=== PATIENT | female | born 1990 | race Caucasian/White ===

== ENCOUNTER 2024-02-11 13:00 | Emergency (ER) | payer OTHER, SELFPAY ==
[2024-02-11 13:19] VITALS: BP 133/90; PULSE 88; RESP 16; TEMP 36.5; O2SAT 99
--- NOTE | 2024-02-11 13:43 | ED.SKABFB ---
HPI - Skin/Abscess/Foreign Bdy General Chief complaint: Skin/Abscess/Foreign Body Stated complaint: left breast lump/pain Time Seen by Provider: 02/11/24 13:24 Source: patient and RN notes reviewed Mode of arrival: ambulatory Limitations: no limitations History of Present Illness HPI narrative: Patient presents today with a 2 to three-week history painful lump to the left breast. She does not currently have a PCP or OBGYN. Denies redness or swelling, drainage from the nipple. No [id number] treatment prior to arrival. Related Data Allergies Allergy/AdvReac Type Severity Reaction Status Date / Time carbamazepine Allergy Intermediate Hives Verified 02/11/24 13:34 Review of Systems Review of Systems: CONSTITUTIONAL: Denies body aches, fever, chills, or sweats. EYES: Denies visual changes, redness, or discharge. ENT: Denies rhinorrhea, congestion, sore throat, or otalgia. CARDIOVASCULAR: Denies chest pain, palpitations, or edema. RESPIRATORY: Denies cough or dyspnea. GASTROINTESTINAL: Denies abdominal pain, nausea, vomiting, or diarrhea. GENITOURINARY: Denies dysuria or hematuria. SKIN: Denies rash, itching, or wounds. + left breast lump and pain MUSCULOSKELETAL: Denies back pain, joint pain, or myalgia. NEUROLOGIC: Denies headache, numbness, tingling, or weakness. PSYCH: Denies depression or anxiety. [facility] Past Medical History Medical History (Updated 02/11/24 @ 13:49 by Felicia Palacios, [facility], ) Anxiety Comments At time of signature, I have reviewed and agree with nursing past medical, surgical, social and family history unless otherwise noted. Please see nursing chart for further information. There is no relevant family history pertinent to the presenting complaint Exam Narrative: GENERAL: Well-appearing, well-nourished, and in no acute distress. HEAD: Normocephalic, atraumatic. EYES: EOMI. No redness or drainage. Conjunctivae normal. ENT: Mucous membranes pink and moist. NECK: Normal AROM. CHEST: No respiratory distress. Left breast: tenderness to the inferior portion of the breast. No erythema, edema, nipple discharge, pronounced lump noted to the breast. No orange peel skin. EXTREMITIES: Normal range of motion. No edema. SKIN: Warm, dry, no rash. Capillary refill normal. Normal skin turgor. NEURO: No focal deficits. Alert and oriented x3. Gait steady. PSYCH: Normal affect. No signs of depression or anxiety. Exam chaperoned by Yelena Padron Course Course Level of Care: Express Care Visit Vital Signs Vital signs: Vital Signs Temperature 97.7 F 02/11/24 13:19 Pulse Rate 88 02/11/24 13:19 Respiratory Rate 16 02/11/24 13:19 Blood Pressure 133/90 02/11/24 13:19 Pulse Oximetry 16 L 02/11/24 13:19 Oxygen Delivery Room Air 02/11/24 13:19 Temperature 97.7 F 02/11/24 13:19 Pulse Rate 88 02/11/24 13:19 Respiratory Rate 16 02/11/24 13:19 Blood Pressure 133/90 02/11/24 13:19 Pulse Oximetry 16 L 02/11/24 13:19 Oxygen Delivery Room Air 02/11/24 13:19 Reviewed MDM - Skin/Abscess/Foreign Bdy MDM Narrative Medical decision making narrative: At this time, obvious lump or mass is not palpated. Recommend patient follow-up with an OBGYN for further evaluation and treatment. ED precautions given Differential Diagnosis Differential diagnosis: Likely abscess of skin or subcutaneous tissue, cellulitis and other (mastitis, mass) Critical Care Time Critical Care Time Critical Care Time: No Discharge Plan Discharge Clinical Impression: Breast tenderness Patient Disposition: Home, Self-Care Condition: Stable Additional Instructions: Please follow-up with an OBGYN for further evaluation of your breast tenderness. Taking anti-inflammatories such as Aleve or ibuprofen for pain. Your blood pressure was elevated above 120/80 today at Urgent Care. This puts you above the threshold for follow up. Please schedule a followup visit with your personal p
== END 2024-02-11 13:56 | disposition home or self-care (01) ==
PROVIDERS: Emergency Provider Nurse Practitioner
DX: N64.4 Mastodynia (principal)
CPT/HCPCS: 99202; G0463

== ENCOUNTER 2024-03-02 04:41 | Emergency (ER) | payer OTHER, SELFPAY ==
--- NOTE | ~2024-03-02 | CT_ITS ---
EXAMINATION: CT abdomen pelvis wo con DATE: 03/02/2024 06:11 INDICATION: Abdominal pain. TECHNIQUE: Computed tomography (CT) of the abdomen and pelvis was performed without intravenous contr ast. Automated exposure control and iterative reconstruction technique were employed. The dose-length product was 271.57 mGy-cm. COMPARISON: None. FINDINGS: The visualized portions of the lung bases are clear without pneumonia or pleural effusion. The heart size is normal. No pericardial effusion. The liver, gallbladder, spleen, pancreas, adrenal glands, and kidneys are normal. There is a urolithiasis. There is prominent stool in right colon. The terminal ileum is stool filled and distended. The appendix is normal. There are no pathologically en larged lymph nodes. There is no free intraperitoneal fluid. There is mild lumbar spondylosis. IMPRESSION: 1. Subtle impaction involving right colon and terminal ileum. Reviewed, dictated and finalized at location A.
[2024-03-02 04:42] VITALS: BP 118/82; PULSE 88; RESP 20; TEMP 36.6; O2SAT 100
--- NOTE | 2024-03-02 04:47 | ED.ABDPAIN ---
HPI - Abdominal Pain General Chief Complaint: Abdominal Pain Stated Complaint: constipation, abd pain Time Seen by Provider: 03/02/24 04:46 Source: patient Mode of arrival: ambulatory Limitations: no limitations History of Present Illness HPI narrative: Patient presents with complaint of right-sided abdominal pain wrapping aroudn to her back. She initially thought that she was constipated and she tried laxatives. LBM yesterday. Prior to that she had been having some diarrhea. Patient notes she has some chronic/longstanding GI issues that she has never had evaluated. She notes that she frequently has an incomplete emptying sensation when she defecates. She notes that sometimes something protrudes when she goes to the bathroom which she has attributed either hemorrhoids verses a prolapse. Sometimes she even has to manually help herself to have a bowel movement. The symptoms tonight are not associated with any nausea, vomiting, or fever. She does continue to have an appetite and ate some edema finished just prior to coming to the emergency department. No prior EGD or colonoscopy. Her symptoms are associated with some right-sided shoulder and hip pain. She did recently have a urinary tract infection but was not on antibiotics. Because of this she continues to have some dysuria. She had previously been having urinary urgency and frequency but this resolved. No hematuria. Denies any vaginal bleeding or discharge. She is amenorrheic given she has had a tubal ablation and ligation. Related Data Allergies Allergy/AdvReac Type Severity Reaction Status Date / Time carbamazepine Allergy Intermediate Hives Verified 02/11/24 13:34 [facility] Past Medical History Medical History (Updated 03/02/24 @ 18:38 by Noreen Talley MD) Amenorrhea Anxiety Surgical History Surgical History Hx of tubal ligation Social History Social History Living arrangements: with friend(s) Additional living arrangements comments: 3 children; previously homeless Occupation/Education: unemployed Additional occupation/education comments: fired 03/01/24 Exam Narrative: GENERAL: Well-appearing, well-nourished, in [id number] acute distress. Intermittently jerking due to right sided paroxysms of pain. Appears restless/uncomfortable. HEAD: Normocephalic, atraumatic. EYES: Non injected, non icteric ENT: Nares clear, no rhinorrhea or epistaxis. Moist mucous membranes NECK: Supple. CHEST: Speaking in full sentences. No respiratory distress. HEART: Regular rate and rhythm. . ABDOMEN: Soft, nondistended. Mild TTP in RLQ and RUQ. No rigidity/guarding. Not peritoneal. EXTREMITIES: Normal range of motion. No lower extremity edema. SKIN: Warm, dry, no rash. NEURO: No focal deficits. Alert and oriented x3. PSYCH: Congruent mood and affect. Course Vital Signs Vital signs: Vital Signs Temperature 97.8 F 03/02/24 04:42 Pulse Rate 88 03/02/24 04:42 Respiratory Rate 20 03/02/24 04:42 Blood Pressure 118/82 03/02/24 04:42 Pulse Oximetry 100 03/02/24 04:42 Oxygen Delivery Room Air 03/02/24 04:42 Temperature 97.8 F 03/02/24 04:42 Pulse Rate 96 03/02/24 06:46 Respiratory Rate 19 03/02/24 06:46 Blood Pressure 123/76 03/02/24 06:46 Pulse Oximetry 100 03/02/24 06:46 Oxygen Delivery Room Air 03/02/24 04:42 MDM - Abdominal Pain MDM Narrative Medical decision making narrative: Patient presents with right-sided abdominal pain associated with shoulder and hip pain. In the emergency department they are afebrile with vital signs within normal limits. Social determinants of health affecting care: previously homeless though currently staying with a friend. CT with constipation, mildly impacted. Patient reassessed and feeling a bit better. Successfully PO challenges. She has evidence of urin
[2024-03-02 05:00] LABS: Basophils Absolute Auto 0.1 K/mm3 (0.0-0.1); Basophils Percent Auto 0.5 % (0.2-1.2); Eosinophils Absolute Auto 0.1 K/mm3 (0-0.3); Eosinophils Percent Auto 1.2 % (0-4.4); Hematocrit 40.4 % (37.0-47.0); Hemoglobin 13.6 g/dL (12.0-15.0); Immature Granulocyte Absolute 0.02 K/mm3 (0.00-0.031); Immature Granulocyte Percent A 0.2 % (0-0.5); Lymphocytes Absolute Auto 2.16 K/mm3 (0.9-3.2); Lymphocytes Percent Auto 23.6 % (18.3-44.2); Mean Corpuscular HGB Conc 33.7 g/dl (32-36); Mean Corpuscular Hemoglobin 30.6 pg (26-34); Mean Platelet Volume 8.4 fl (7.4-10.4); Monocytes Absolute Auto 0.7 K/mm3 (0.1-0.6); Monocytes Percent Auto 7.2 % (2.6-8.5); Neutrophils Absolute Auto 6.2 K/mm3 (1.3-6.7); Neutrophils Percent Auto 67.3 % (45.5-73.1); Platelet Count Result 366 k/mm3 (150-375); Red Blood Count 4.44 M/mm3 (4.2-5.4); Red Cell Distribution Width 11.7 % (11.5-14.5); White Blood Count 9.2 K/mm3 (4.5-10.0)
[2024-03-02] MEDS: SODIUM CHLORIDE 0.9% IV 1,000 ML 999 ML IV CONT (05:00)
[2024-03-02] MEDS: MORPHINE SULFATE (*CRX) 4 MG/ML INJ IV PUSH (05:00)
[2024-03-02 05:10] LABS: Alanine Aminotransferase 29 U/L (6-35); Albumin Level 4.6 g/dL (3.5-5.1); Alkaline Phosphatase 56 U/L (38-126); Anion Gap 8 mmol/L (4-12); Aspartate Amino Transferase 23 U/L (14-36); Bilirubin,Total 0.5 mg/dL (0.2-1.3); Blood Urea Nitrogen 15 mg/dL (7-17); Calcium 9.3 mg/dL (8.4-10.2); Carbon Dioxide 30 mmol/L (22-30); Chloride 100 mmol/L (98-107); Estimated CRCL calculation 73 ml/min; Estimated Glomerular Filt Rate > 60; Glucose 73 mg/dL (65-110); Lipase 100 U/L (23-300); Potassium 3.4 mmol/L (3.4-5.0); Sodium 138 mmol/L (137-145)
[2024-03-02 05:58] LABS: BEDSIDEPREGUCG Negative
[2024-03-02 06:09] LABS: Add Urine Microscopic? YES; Appearance Urine Cloudy (Clear); Bacteria Urine Rare /hpf; Bilirubin Urine Negative (Negative); Blood Urine 3+ (Negative); Color Urine Yellow (Yellow); Glucose Urine UA Negative (Negative); Ketones Urine Negative (Negative); Leukocyte Esterase Ur 2+ LEU/UL (Negative); Nitrate Urine Negative (Negative); Non Pathogenic Casts 0-2; Protein Urine 1+ mg/dL (Negative); RBC Urine 51-100 /hpf (0-2); Specific Grav Ur 1.018 (1.001-1.035); Squamous Epithelial Cell Urine Occasional /hpf (Few); Urobilinogen Urine 0.2 mg/dL (<2.0); WBC Urine >100 /hpf (0-3)
[2024-03-02] MEDS: MAGNESIUM CITRATE 300 ML BTL 150 ML PO (06:42)
[2024-03-02] MEDS: DICYCLOMINE HCL 10 MG CAPSULE PO (06:42)
[2024-03-02] MEDS: polyethylene glycoL 3350 17 GM POWD.PACK PO (06:42)
[2024-03-02 06:46] VITALS: BP 123/76; PULSE 96; RESP 19; O2SAT 100
[2024-03-02 07:10] LABS: Trichomonas Vag PCR DETECTED (NOT DETECTE)
[2024-03-02] MEDS: SULFAMETHOXAZOLE/TRIMETHOPRIM 800/160 MG DS TABLET 1 TAB PO (07:11)
[2024-03-02 07:39] LABS: Chlamydia trachomatis NOT DETECTED (NOT DETECTE); Neisseria gonorrhoeae PCR NOT DETECTED (NOT DETECTE)
== END 2024-03-02 07:18 | disposition home or self-care (01) ==
PROVIDERS: Emergency Provider Student in an Organized Health Care Education/Training Program
DX: K59.00 Constipation, unspecified (principal); N39.0 Urinary tract infection, site not specified; A59.01 Trichomonal vulvovaginitis
CPT/HCPCS: 36415; 74176; 80053; 81001; 81025; 83690; 85025; 87077; 87086; 87088; 87491; 87591; 87661; 96361; 96374; 99284; A9270; J2270; J7030